=== PATIENT | female | born 1975 | race Caucasian/White ===

== ENCOUNTER 2021-03-01 22:29 | Emergency (ER) | payer MEDICAID ==
[~2021-03-01] VITALS: Ht 172.7 cm; Wt 100.9 kg
[~2021-03-01 22:29] MED LIST: DOCU-28 PO; HYDR-4383 PO
[2021-03-01] MEDS ORDERED: ketorolac trometh. 30mg/ml inj. IV ONE (23:00)
[2021-03-01] MEDS ORDERED: normal saline 1000ML IV soln IVB ONE (23:00)
[2021-03-01] MEDS ORDERED: ondansetron/PF 4mg/2ml inj IV ONE (23:00)
[2021-03-01 23:06] LABS: BASOPHILS # (AUTO) 0.1 X10'3 (0-0.2); BASOPHILS % (AUTO) 0.6 % (0-1); EOSINOPHILS # (AUTO) 0.1 X10'3 (0-0.9); EOSINOPHILS % (AUTO) 0.6 % (0-6); HEMATOCRIT 41.4 % (35.0-45.0); HEMOGLOBIN 13.7 g/dl (12.0-16.0); LYMPHOCYTES # (AUTO) 3.6 X10'3 (1.1-4.8); LYMPHOCYTES % (AUTO) 23.4 % (21-51); MEAN CORPUSCULAR HEMOGLOBIN 29.1 PG (27.0-31.0); MEAN CORPUSCULAR HGB CONC 33.1 g/dL (33.0-36.5); MEAN PLATELET VOLUME 7.3 FL (7.4-10.4); MONOCYTES # (AUTO) 0.8 X10'3 (0-0.9); MONOCYTES % (AUTO) 5.5 % (2-12); NEUTROPHILS # (AUTO) 10.8 X10'3 (1.8-7.7); NEUTROPHILS % (AUTO) 69.9 % (42-75); PLATELET COUNT 320 X10'3 (140-440); RED CELL DISTRIBUTION WIDTH 14.8 % (11.5-14.5); WHITE BLOOD COUNT 15.5 X10'3 (4.5-11.0)
[2021-03-01 23:11] LABS: CLARITY,URINE TURBID (Clear); COLOR,URINE YELLOW (Yellow); GLUCOSE, URINE NEGATIVE (Neg); KETONES,URINE NEGATIVE (Neg); LEUKOCYTE ESTERASE ,URINE MODERATE (Neg); NITRITES, URINE NEGATIVE (Neg); OCCULT BLOOD,URINE LARGE (Neg); PROTEIN,URINE 100 mg/dl (Neg); URINE HCG NEGATIVE (NEG); UROBILINOGEN,URINE 0.2 E.U/dL (0.2-1.0)
[2021-03-01 23:17] LABS: UA COLLECTION TYPE CLN CATCH MIDSTREAM
[2021-03-01 23:20] LABS: ALANINE AMINOTRANSFERASE 23 U/L (12-78); ALBUMIN 3.6 G/DL (3.4-5.0); ALBUMIN/GLOBULIN RATIO 0.8 (1.1-1.5); ALKALINE PHOSPHATASE 105 IU/L (46-116); ANION GAP 9 (8-16); ASPARTATE AMINO TRANSFERASE 19 U/L (10-37); BILIRUBIN,TOTAL 0.2 MG/DL (0.1-1.0); BLOOD UREA NITROGEN 21 MG/DL (7-18); BUN/CREATININE RATIO 26.9 (6.6-38.0); CHLORIDE 104 MMOL/L (99-107); CREATININE 0.78 MG/DL (0.40-0.90); GLUCOSE 147 MG/DL (70-104); LIPASE 139 U/L (73-393); POTASSIUM 4.2 MMOL/L (3.5-5.1); SODIUM 138 MMOL/L (135-145); TOTAL CARBON DIOXIDE 24.7 MMOL/L (24-32); eGFR 80 ML/MIN
[2021-03-01 23:22] LABS: WBC,URINE TNTC /HPF (0-4)
[2021-03-01 23:23] LABS: BACTERIA,URINE 2+ /HPF (Neg)
[2021-03-01 23:24] LABS: MUCUS STRANDS MODERATE /LPF (Neg); SQUAMOUS EPITHELIAL CELL,UR FEW /LPF (FEW)
[2021-03-02] MEDS ORDERED: morphine 4 MG/ML inj SYRINge IV ONE (00:15)
[2021-03-02] MEDS ORDERED: levoFLOXACIN-Levaquin 500mg/D5 100 ML IV ONE (00:15)
[2021-03-02] MEDS ORDERED: ONDA4TAB6 PO (00:17)
[2021-03-02] MEDS ORDERED: LEVO500T89 PO (00:17)
[2021-03-02] MEDS ORDERED: TADA20TA PO (00:17)
[2021-03-02] MEDS ORDERED: KETO10TA2 PO (00:17)
[2021-03-02] MEDS ORDERED: HYDR-3965 PO (00:17)
--- NOTE | 2021-03-02 00:51 | NUR ---
Patient is instructed by MD Booth with RN present on how to collect kidney stones with strainer, hat and specimen cup. Supplies given to patient who verbalized understanding of instructions.
[2021-03-02 01:55] VITALS: BP 114/56
== END 2021-03-02 01:56 | disposition home or self-care (01) ==
LOC: ER 22:30
DX: N13.2 Hydronephrosis with renal and ureteral calculous obstruction (principal); N39.0 Urinary tract infection, site not specified; R10.32 Left lower quadrant pain; J45.909 Unspecified asthma, uncomplicated; Z98.890 Other specified postprocedural states; Z79.899 Other long term (current) drug therapy
CPT/HCPCS: 36415; 74176; 80053; 81001; 81025; 83690; 85025; 87077; 87088; 87186; 96361; 96365; 96375; 99284; J1885; J1956; J2270; J2405; J7030

== ENCOUNTER 2021-03-05 14:35 | Emergency (ER) | payer MEDICAID ==
[~2021-03-05] VITALS: Ht 172.7 cm; Wt 100.0 kg
[~2021-03-05 14:35] MED LIST changes: +HYDR-3965 PO; +KETO10TA2 PO; +LEVO500T89 PO; +ONDA4TAB6 PO; +TADA20TA PO
[2021-03-05 18:48] LABS: URINE HCG NEGATIVE (NEG)
[2021-03-05 18:59] LABS: CLARITY,URINE SLIGHTLY CLOUDY (Clear); COLOR,URINE YELLOW (Yellow); GLUCOSE, URINE NEGATIVE (Neg); KETONES,URINE NEGATIVE (Neg); LEUKOCYTE ESTERASE ,URINE SMALL (Neg); NITRITES, URINE NEGATIVE (Neg); OCCULT BLOOD,URINE SMALL (Neg); PROTEIN,URINE NEGATIVE (Neg); UROBILINOGEN,URINE 0.2 E.U/dL (0.2-1.0)
[2021-03-05 19:16] LABS: UA COLLECTION TYPE CLN CATCH MIDSTREAM
[2021-03-05 19:18] LABS: BACTERIA,URINE 1+ /HPF (Neg); SQUAMOUS EPITHELIAL CELL,UR MODERATE /LPF (FEW); WBC,URINE 30-50 /HPF (0-4)
[2021-03-05 19:19] LABS: WBC CLUMPS,URINE MODERATE /HPF (NEGATIVE)
[2021-03-05 19:51] VITALS: BP 128/57
[2021-03-05] MEDS ORDERED: ketorolac tromethamine 15mg/ml inj. IV ONE (20:05)
[2021-03-05] MEDS ORDERED: normal saline 1000ml 1,000 ML IV ONE ×2 (20:05→20:15)
[2021-03-05] MEDS ORDERED: ondansetron/PF 4mg/2ml inj IV ONE (20:05)
[2021-03-05 20:28] LABS: BASOPHILS # (AUTO) 0.2 X10'3 (0-0.2); BASOPHILS % (AUTO) 1.3 % (0-1); EOSINOPHILS # (AUTO) 0.1 X10'3 (0-0.9); HEMOGLOBIN 12.7 g/dl (12.0-16.0); LYMPHOCYTES # (AUTO) 2.3 X10'3 (1.1-4.8); LYMPHOCYTES % (AUTO) 18.8 % (21-51); MEAN CORPUSCULAR HEMOGLOBIN 29.3 PG (27.0-31.0); MEAN CORPUSCULAR HGB CONC 33.5 g/dL (33.0-36.5); MEAN CORPUSCULAR VOLUME 87.6 FL (78-98); MEAN PLATELET VOLUME 7.3 FL (7.4-10.4); MONOCYTES # (AUTO) 0.7 X10'3 (0-0.9); MONOCYTES % (AUTO) 5.6 % (2-12); NEUTROPHILS # (AUTO) 8.9 X10'3 (1.8-7.7); NEUTROPHILS % (AUTO) 73.3 % (42-75); PLATELET COUNT 287 X10'3 (140-440); RED BLOOD COUNT 4.34 X10'6 (4.20-5.60); RED CELL DISTRIBUTION WIDTH 14.6 % (11.5-14.5); WHITE BLOOD COUNT 12.1 X10'3 (4.5-11.0)
[2021-03-05 20:40] LABS: ALANINE AMINOTRANSFERASE 30 U/L (12-78); ALBUMIN 3.4 G/DL (3.4-5.0); ALBUMIN/GLOBULIN RATIO 0.8 (1.1-1.5); ALKALINE PHOSPHATASE 104 IU/L (46-116); ANION GAP 11 (8-16); ASPARTATE AMINO TRANSFERASE 18 U/L (10-37); BILIRUBIN,TOTAL 0.3 MG/DL (0.1-1.0); BLOOD UREA NITROGEN 15 MG/DL (7-18); BUN/CREATININE RATIO 14.2 (6.6-38.0); CALCIUM 8.5 MG/DL (8.5-10.1); CHLORIDE 104 MMOL/L (99-107); CREATININE 1.06 MG/DL (0.40-0.90); GLUCOSE 99 MG/DL (70-104); LIPASE 100 U/L (73-393); POTASSIUM 4.2 MMOL/L (3.5-5.1); SODIUM 140 MMOL/L (135-145); TOTAL CARBON DIOXIDE 25.1 MMOL/L (24-32); TOTAL PROTEIN 7.7 G/DL (6.4-8.2); eGFR 56 ML/MIN
[2021-03-05] MEDS ORDERED: normal saline 1000ML IV soln IVB ONE (21:10)
--- NOTE | 2021-03-05 21:17 | NUR ---
bárbara varner pt and germanfriend about results and dc. 0.5 ns final bolus now ordered and then pt dc ready. pt with stable vs.
== END 2021-03-05 21:54 | disposition home or self-care (01) ==
LOC: ER 14:35
DX: N13.30 Unspecified hydronephrosis (principal); N20.0 Calculus of kidney; N39.0 Urinary tract infection, site not specified; R10.32 Left lower quadrant pain; R11.2 Nausea with vomiting, unspecified; J45.909 Unspecified asthma, uncomplicated; Z87.442 Personal history of urinary calculi; Z98.890 Other specified postprocedural states; Z79.2 Long term (current) use of antibiotics; Z79.899 Other long term (current) drug therapy
CPT/HCPCS: 36415; 80053; 81001; 81025; 83605; 83690; 84145; 85025; 87040; 87088; 96361; 96374; 96375; 99284; J1885; J2405; J7030